=== PATIENT | male | born 1960 | race Caucasian/White ===

== ENCOUNTER → 2021-03-07 12:46 | Outpatient (CLI) | payer OTHER, SELFPAY ==
[2021-03-07 13:47] LABS: Basophils # 0.1 K/mm3 (0-0.2); Eosinophils # 0.1 K/mm3 (0.0-0.4); Eosinophils % 2.3 % (0.1-12.0); Hematocrit 43.8 % (42.0-52.0); Hemoglobin 14.7 g/dL (14.1-18.0); Lymphocytes # 2.3 K/mm3 (0.7-4.5); Lymphocytes % 36.8 % (10-50); Mean Corpuscular HGB Conc 33.6 g/dL (31.8-35.4); Mean Corpuscular Hemoglobin 29.4 pg (27.0-31.2); Mean Corpuscular Volume 87.6 fl (80-94); Mean Platelet Volume 11.5 fl (7.4-10.4); Monocytes # 0.3 K/mm3 (0.1-1.0); Monocytes % 5.2 % (1.7-9.3); Neutrophils # 3.4 K/mm3 (1.8-7.8); Neutrophils % 54.7 % (37.0-80.0); Platelet Count 126 K/mm3 (142-424); Red Blood Count 4.99 M/mm3 (4.60-6.20); Red Cell Distribution Width 13.4 % (11.5-17.5); White Blood Count 6.1 K/mm3 (4.8-10.8)
[2021-03-07 14:10] LABS: Alanine Aminotransferase 43 U/L (12-78); Albumin Level 4.3 g/dl (3.5-5.0); Albumin/Globulin Ratio 1.7 (1.1-1.8); Alkaline Phosphatase 146 U/L (38-126); Anion Gap 17.8 mEq/L (5-15); Aspartate Amino Transferase 31 U/L (17-59); Bilirubin,Total 1.2 mg/dl (0.2-1.3); Blood Urea Nitrogen 19 mg/dl (9-20); Carbon Dioxide 19 mmol/L (22.0-30.0); Chloride 102 mmol/L (98-107); Chol/HDL Ratio 7.2 (1-3.5); Cholesterol 223 mg/dl (140-200); Estimated Glomerular Filt Rate 115 ml/min (>60); GFR (African American) 139 ML/MIN (>60); Globulin 2.6 g/dL (1.3-3.2); HDL Cholesterol 31 mg/dl (40-60); Potassium 4.8 mmoL/L (3.5-5.1); Sodium 134 mmol/L (136-145); Total Protein,Serum 6.9 g/dl (6.3-8.2)
[2021-03-07 14:22] LABS: Direct LDL Cholesterol 80.33 mg/dL (100-129)
[2021-03-07 14:38] LABS: Free T4 (Free Thyroxine) 0.93 ng/dl (0.78-2.19)
[2021-03-07 14:41] LABS: Thyroid Stimulating Hormone 5.54 uIU/mL (0.465-4.68)
[2021-03-07 15:52] LABS: Glucose 490 mg/dl (74-100); Triglycerides 933 mg/dl (30-150)
[2021-03-07 16:13] LABS: Hemoglobin A1C 13.6 % (4.0-6.0)
== END ==
PROVIDERS: Visit Provider Emergency Medicine
DX: E11.9 Type 2 diabetes mellitus without complications (principal)
CPT/HCPCS: 80053; 80061; 83036; 84439; 84443; 85025

== ENCOUNTER → 2021-03-29 19:26 | Outpatient (CLI) | payer OTHER, SELFPAY ==
[2021-03-29 20:15] LABS: Microalbumin/Creatinine Ratio 8.3
[2021-03-29 20:16] LABS: Creatinine,Urine Random 85 mg/dL (Not Estab.)
[2021-03-31 11:10] LABS: C-Peptide 4.4 ng/mL (1.1-4.4)
== END ==
PROVIDERS: Visit Provider Nurse Practitioner Family
DX: E11.9 Type 2 diabetes mellitus without complications (principal); Z79.4 Long term (current) use of insulin
CPT/HCPCS: 82043; 82570; 84681

== ENCOUNTER 2022-09-03 13:07 | Emergency (ER) | payer SELFPAY ==
--- NOTE | 2022-09-03 14:21 | EXP.UTC ---
Discharge Plan Disposition Patient Disposition: Home, Self-Care Condition: Good Prescriptions Prescriptions: New ciprofloxacin HCl [Ciloxan] 0.3 % drops 2 drp Eye-Right BID 7 Days Qty: 1 0RF prednisone [prednisone] 20 mg tablet 20 mg PO DAILY 4 Days Qty: 4 0RF amoxicillin-pot clavulanate 875-125 mg Tablet 1 tab PO Q12H Qty: 20 0RF No Action (DME) blood-glucose meter [Accu-Chek Guide Glucose Meter] Misc See Rx Instructions .ROUTE .MEDSUPPLY Qty: 1 0RF Rx Instructions: Check sugar once daily or As directed (DME) Accu-Chek Guide test strips Strip See Rx Instructions .ROUTE .MEDSUPPLY Qty: 100 2RF Rx Instructions: Check sugar once daily or As directed (DME) lancets [Accu-Chek Softclix Lancets] Misc See Rx Instructions .ROUTE .MEDSUPPLY Qty: 100 1RF Rx Instructions: Check sugar once daily or As directed Lantus U-100 Insulin 100 unit/mL solution 10 unit SQ DAILY metformin 1,000 mg tablet 1,000 mg PO BID Qty: 180 2RF aspirin 81 mg tablet,delayed release (DR/EC) 81 mg PO DAILY Qty: 90 2RF atorvastatin [Lipitor] 10 mg tablet 10 mg PO HS Qty: 90 0RF lisinopril 2.5 mg tablet 2.5 mg PO DAILY Qty: 90 0RF levothyroxine [Synthroid] 25 mcg tablet 25 mcg PO DAILY Qty: 90 3RF Referrals Follow up/Referrals: Provider,Referral, MD [Primary Care Provider] - See instructions Activity Restrictions/Add. Instructions Additional Instructions/Restrictions: Take tylenol or ibuprofen for pain or fever. Take the medications as directed. Use the ear drops as directed. Follow up with your regular doctor. GO TO THE ER FOR ANY WORSENING SYMPTOMS Clinical Impressions Clinical Impression: Acute right otitis media Stand Alone Forms Stand Alone Forms: Work/School Release Instructions Patient Instructions: How to Instill Ear Drops, Middle Ear Infection Discharge ED Provider: Mauricio Fox [facility] [place] General Stated complaint: ear pain, sore throat, cough Time Seen by Provider: 09/03/22 14:21 History of Present Illness Provider Complaint: He states that for the past 4 days he has had worsening right ear pain. He believes he has an ear infection. He denies significant cough and other symptoms. Related Data Home Medications Medication Instructions Recorded Confirmed insulin glargine 100 unit/mL 10 unit SQ DAILY 03/29/21 03/29/21 subcutaneous solution (Lantus U-100 Insulin) Previous Rx's Medication Instructions Recorded blood sugar diagnostic (Accu-Chek #100 ea 02/07/21 Guide test strips) blood-glucose meter (Accu-Chek #1 ea 02/07/21 Guide Glucose Meter) lancets (Accu-Chek Softclix #100 ea 02/07/21 Lancets) aspirin 81 mg tablet,delayed 81 mg PO DAILY #90 tabs 03/07/21 release atorvastatin 10 mg tablet (Lipitor) 10 mg PO HS #90 tabs 03/07/21 lisinopril 2.5 mg tablet 2.5 mg PO DAILY #90 tabs 03/07/21 metformin 1,000 mg tablet 1,000 mg PO BID #180 tabs 03/07/21 levothyroxine 25 mcg tablet 25 mcg PO DAILY #90 tabs 03/14/21 (Synthroid) amoxicillin 875 mg-potassium 1 tab PO Q12H #20 tabs 09/03/22 clavulanate 125 mg tablet ciprofloxacin HCl 0.3 % eye drops 2 drp Eye-Right BID 7 days #1 mL 09/03/22 (Ciloxan) prednisone 20 mg tablet 20 mg PO DAILY 4 days #4 tabs 09/03/22 Allergies Allergy/AdvReac Type Severity Reaction Status Date / Time No Known Allergies Allergy Verified 09/03/22 14:29 [facility] Disclaimer: The information contained in this section may have been updated after the patient was seen, as this information can be updated by other users. Social History Smoking Status: Never smoker alcohol intake: current substance use type: denies use current occupational status: employed Travel in the last 8 weeks: None housing: house ROS Obtained: Yes All systems reviewed & no additional complaints except as documented Constitut
[2022-09-03 14:26] VITALS: BP 131/86; PULSE 84; RESP 19; TEMP 37.6; O2SAT 97; BMI 33.5
[2022-09-03 15:14] VITALS: BP 131/86; PULSE 84; RESP 19; TEMP 37.6
== END 2022-09-03 15:15 | disposition home or self-care (01) ==
PROVIDERS: Emergency Provider Nurse Practitioner Family
DX: H66.91 Otitis media, unspecified, right ear (principal)
CPT/HCPCS: 99212; G0463

== ENCOUNTER 2023-07-26 11:36 | Emergency (ER) | payer OTHER, SELFPAY ==
[2023-07-26] VITALS (8 sets, daily range): BP systolic 119–147; BP diastolic 68–89; PULSE 77–88; RESP 17–18; TEMP 36.7; O2SAT 95–99; BMI 26.6
[2023-07-26 11:54] LABS: POC Glucose,Bedside 186 (70-110)
[2023-07-26 12:03] LABS: Microscopic, Urine URINE MICROSCOPIC (MICROSCOPIC)
--- NOTE | 2023-07-26 12:03 | CT_ITS ---
PROCEDURE INFORMATION: Exam: CT Lumbar Spine Without Contrast Exam date and time: 07/26/2023 12:12 PM Age: 62 years old Clinical indication: Injury or trauma; Fall; Blunt trauma (contusions or hematomas); Additional info: Fall from barn TECHNIQUE: Imaging protocol: Computed tomography of the lumbar spine without contrast. Radiation optimization: All CT scans at this facility use at least one of these dose optimization techniques: automated exposure control; mA and/or kV adjustment per patient size (includes targeted exams where dose is matched to clinical indication); or iterative reconstruction. REPORTING DATA: Count of CT and Cardiac NM exams in prior 12 months: This patient has received 0 known CTs and 0 known cardiac nuclear medicine studies in the 12 months prior to the current study. COMPARISON: No relevant prior studies available. FINDINGS: Bones/joints: There is mild acute wedge compression of the upper T12 vertebral body. The bones are osteopenic. The alignment is preserved. There is lumbar spondylosis with disc bulging and osteophyte, facet arthropathy and ligamentous thickening. At L1-L2 there is broad-based disc bulge with facet arthropathy. There is mild canal narrowing and [id number] neural foraminal stenosis. At L2-L3 there is a broad-based disc bulge with facet arthropathy and ligamentous thickening causing hzld-au-blcgrgsr canal narrowing and neural foraminal narrowing. At L3-L4 there is a broad-based disc bulge with facet arthropathy and ligamentous thickening causing moderate canal and foraminal narrowing. At L4-L5 there is a broad-based disc bulge with facet arthropathy and ligamentous thickening causing moderate canal and foraminal narrowing. At L5-S1 there is disc osteophyte with this arthropathy. There is moderate canal and severe neural foraminal narrowing. Soft tissues: Unremarkable. IMPRESSION: Acute T12 compression fracture. Lumbar spondylosis.
--- NOTE | 2023-07-26 12:03 | CT_ITS ---
PROCEDURE INFORMATION: Exam: CT Pelvis Without Contrast; Skeletal Exam date and time: 07/26/2023 12:15 PM Age: 62 years old Clinical indication: Injury or trauma; Fall; Blunt trauma (contusions or hematomas); Bilateral; Pelvic region; Additional info: Fall from barn TECHNIQUE: Imaging protocol: Computed tomography of the pelvis without contrast. Exam focused on the skeleton. Radiation optimization: All CT scans at this facility use at least one of these dose optimization techniques: automated exposure control; mA and/or kV adjustment per patient size (includes targeted exams where dose is matched to clinical indication); or iterative reconstruction. REPORTING DATA: Count of CT and Cardiac NM exams in prior 12 months: This patient has received 0 known CTs and 0 known cardiac nuclear medicine studies in the 12 months prior to the current study. COMPARISON: CT LUMBAR SPINE WO CON 07/26/2023 12:12 PM FINDINGS: Stomach and bowel: Diverticular disease is incidentally noted in the visualized portion of the sigmoid and descending colon. Bones/joints: There is relatively symmetric sacroiliac sclerosis and osteophytosis. There is no evidence for acute pelvic fracture or dislocation. There is symmetric mild joint space narrowing about the hips. Soft tissues: Unremarkable. IMPRESSION: No evidence of acute trauma in the pelvis.
[2023-07-26 12:04] LABS: Appearance,Urine CLEAR (Clear); Bilirubin,Urine Negative (Negative); Blood, Urine Negative (Negative); Color,Urine YELLOW (Yellow); Glucose,Urine (UA) Negative (Negative); Ketones,Urine TRACE (Negative); Leukocyte Esterase,Urine Negative (Negative); Nitrate,Urine Negative (Negative); Protein,Urine Negative (Negative); Specific Gravity, Urine >= 1.030 (1.005-1.030); Urobilinogen,Urine 0.2 EU/dl (0.2)
--- NOTE | 2023-07-26 12:05 | HMH.EDGENADL ---
Discharge Plan Disposition Patient Disposition: Home, Self-Care Prescriptions Prescriptions: New oxycodone 5 mg tablet 5 mg PO Q8H PRN (Reason: severe pain (scale score 7-10)) Qty: 12 0RF Rx Instructions: Do not combine with other opiates. Please take only after Tylenol and ibuprofen have not improved pain. No Action (DME) blood-glucose meter [Accu-Chek Guide Glucose Meter] Misc See Rx Instructions .ROUTE .MEDSUPPLY Qty: 1 0RF Rx Instructions: Check sugar once daily or As directed (DME) Accu-Chek Guide test strips Strip See Rx Instructions .ROUTE .MEDSUPPLY Qty: 100 2RF Rx Instructions: Check sugar once daily or As directed (DME) lancets [Accu-Chek Softclix Lancets] Misc See Rx Instructions .ROUTE .MEDSUPPLY Qty: 100 1RF Rx Instructions: Check sugar once daily or As directed Lantus U-100 Insulin 100 unit/mL solution 10 unit SQ DAILY metformin 1,000 mg tablet 1,000 mg PO BID Qty: 180 2RF aspirin 81 mg tablet,delayed release (DR/EC) 81 mg PO DAILY Qty: 90 2RF atorvastatin [Lipitor] 10 mg tablet 10 mg PO HS Qty: 90 0RF lisinopril 2.5 mg tablet 2.5 mg PO DAILY Qty: 90 0RF levothyroxine [Synthroid] 25 mcg tablet 25 mcg PO DAILY Qty: 90 3RF ciprofloxacin HCl [Ciloxan] 0.3 % drops 2 drp Eye-Right BID 7 Days Qty: 1 0RF prednisone [prednisone] 20 mg tablet 20 mg PO DAILY 4 Days Qty: 4 0RF amoxicillin-pot clavulanate 875-125 mg Tablet 1 tab PO Q12H Qty: 20 0RF Referrals Follow up/Referrals: Provider,Referral, MD [Primary Care Provider] - See instructions Activity Restrictions/Add. Instructions Additional Instructions/Restrictions: At this time it was felt you are safe to be discharged home. If new or worsening symptoms please do not hesitate to return the emergency department. Please call and schedule an appointment with your spine doctor as discussed. Please take your medication as prescribed. Clinical Impressions Clinical Impression: Closed T12 fracture Discharge ED Provider: Reynaldo Becerril General Adult HPI General Chief complaint: Fall Stated complaint: AO fall out of barn, backpain Time Seen by Provider: 07/26/23 12:00 Mode of Arrival: Ambulatory Source of Information: Patient Limitations: No Limitations Description of Symptoms (Recalled from ER Triage Doc. by RN): pt c/o lower back pain r/t fall approx 6 ft from a barn rail while house tobacco at approx 11am this morning. Denies neck pain, denies LOC, no loss of bowel or bladder control. History of Present Illness HPI narrative: Patient is a 62-year-old male with no pertinent past medical history presents emergency department for evaluation of traumatic injury sustained in a fall. Patient fell off of the lower rail while house and tobacco striking his lower back. Did not strike his head, no loss of consciousness, no anticoagulants. Denies other pain at this time. Related Data Home Medications Medication Instructions Recorded Confirmed insulin glargine 100 unit/mL 10 unit SQ DAILY 03/29/21 03/29/21 subcutaneous solution (Lantus U-100 Insulin) Previous Rx's Medication Instructions Recorded blood sugar diagnostic (Accu-Chek #100 ea 02/07/21 Guide test strips) blood-glucose meter (Accu-Chek #1 ea 02/07/21 Guide Glucose Meter) lancets (Accu-Chek Softclix #100 ea 02/07/21 Lancets) aspirin 81 mg tablet,delayed 81 mg PO DAILY #90 tabs 03/07/21 release atorvastatin 10 mg tablet (Lipitor) 10 mg PO HS #90 tabs 03/07/21 lisinopril 2.5 mg tablet 2.5 mg PO DAILY #90 tabs 03/07/21 metformin 1,000 mg tablet 1,000 mg PO BID #180 tabs 03/07/21 levothyroxine 25 mcg tablet 25 mcg PO DAILY #90 tabs 03/14/21 (Synthroid) amoxicillin 875 mg-potassium 1 tab PO Q12H #20 tabs 09/03/22 clavulanate 125 mg tablet ciprofloxacin HCl 0.3 % eye drops 2 drp Eye-Right BID 7 days #1 mL 09/03/22 (Ciloxan) prednisone 20 mg tablet 20 mg PO DAILY 4 days #4 ta
[2023-07-26 12:09] LABS: Basophils # 0.1 K/mm3 (0-0.2); Eosinophils # 0.1 K/mm3 (0.0-0.4); Eosinophils % 0.7 % (0.1-12.0); Hematocrit 45.3 % (42.0-52.0); Hemoglobin 15.2 g/dL (14.1-18.0); Lymphocytes # 1.6 K/mm3 (0.7-4.5); Lymphocytes % 24.8 % (10-50); Mean Corpuscular HGB Conc 33.6 g/dL (31.8-35.4); Mean Corpuscular Hemoglobin 28.8 pg (27.0-31.2); Mean Corpuscular Volume 85.7 fl (80-94); Mean Platelet Volume 9.6 fl (7.4-10.4); Monocytes # 0.3 K/mm3 (0.1-1.0); Monocytes % 4.1 % (1.7-9.3); Neutrophils # 4.6 K/mm3 (1.8-7.8); Neutrophils % 69.3 % (37.0-80.0); Platelet Count 110 K/mm3 (142-424); Red Blood Count 5.29 M/mm3 (4.60-6.20); Red Cell Distribution Width 13.2 % (11.5-17.5); White Blood Count 6.6 K/mm3 (4.8-10.8)
[2023-07-26 12:15] LABS: Blood Urea Nitrogen 22 mg/dl (9-20); Calcium 8.7 mg/dl (8.4-10.2); Carbon Dioxide 24 mmol/L (22.0-30.0); Chloride 101 mmol/L (98-107); Creatinine Clearance Estimated 74 mL/min (50-200); Estimated Glomerular Filt Rate 114 ml/min (>60); GFR (African American) 138 ML/MIN (>60); Glucose 185 mg/dl (74-100); Sodium 136 mmol/L (136-145)
[2023-07-26 12:20] LABS: Bacteria,Urine Trace /lpf; Squamous Epithelial Cell,Urine Occasional #/hpf (0-5); Transitional Epi Cells,Urine N #/lpf (0-3)
--- NOTE | 2023-07-26 12:39 | PC.NURSE ---
Rounded on pt. No needs or complaints voiced. Call light within reach.
--- NOTE | 2023-07-26 13:06 | CT_ITS ---
PROCEDURE INFORMATION: Exam: CT Thoracic Spine Without Contrast Exam date and time: 07/26/2023 1:14 PM Age: 62 years old Clinical indication: Pain; Additional info: Spine trauma TECHNIQUE: Imaging protocol: Computed tomography of the thoracic spine without contrast. Radiation optimization: All CT scans at this facility use at least one of these dose optimization techniques: automated exposure control; mA and/or kV adjustment per patient size (includes targeted exams where dose is matched to clinical indication); or iterative reconstruction. REPORTING DATA: Count of CT and Cardiac NM exams in prior 12 months: This patient has received 0 known CTs and 0 known cardiac nuclear medicine studies in the 12 months prior to the current study. COMPARISON: CT LUMBAR SPINE WO CON 07/26/2023 12:12 PM FINDINGS: Bones/joints: There is an acute wedge compression fracture of T12 vertebral body primarily involving the superior endplate or compression line is apparent. There is no retropulsed bone fragment. Alignment in the thoracic spine is normal. There is a probable hemangioma in the T8 vertebral body. No spinal canal stenosis in the thoracic spine. Soft tissues: Unremarkable. Lungs: There is subpleural atelectasis of the dependent portions of the lungs. IMPRESSION: There is a wedge compression fracture of T12 vertebral body primarily involving the superior endplate. There is no significant retropulsed bone fragment. No spinal canal stenosis at this level or in remainder of the thoracic spine.
--- NOTE | 2023-07-26 13:20 | PC.NURSE ---
pt was resting in bed stated no needs at bs
--- NOTE | 2023-07-26 14:14 | PC.NURSE ---
Dr. Becerril speaking with Dr. Owen
--- NOTE | 2023-07-26 14:30 | PC.NURSE ---
Dr. Becerril and Rosina RN at to update pt on POC
== END 2023-07-26 15:00 | disposition home or self-care (01) ==
PROVIDERS: Emergency Provider Emergency Medicine
DX: S22.080A Wedge compression fracture of T11-T12 vertebra, initial encounter for closed fracture (principal); W17.89XA Other fall from one level to another, initial encounter
CPT/HCPCS: 72128; 72131; 72192; 80048; 81001; 82962; 85025; 96374; 96376; 99285

== ENCOUNTER 2023-09-25 11:25 | Outpatient (CLI) | payer OTHER, SELFPAY ==
--- NOTE | 2023-09-25 11:30 | MR_ITS ---
FINAL REPORT CLINICAL HISTORY: PAIN IN THORACIC AND LUMBAR SPINE. PAIN RADIATES DOWN INTO RIGHT HIP. COMPARISON: None FINDINGS: Multiplanar MR imaging of the right hip was performed without contrast. There is no evidence of fracture or dislocation. There is no evidence of avascular necrosis. No bony mass is identified. There is mild degenerative change in the hips bilaterally. There is mild irregularity of the anterior superior labrum, likely a small tear. A small joint effusion is seen. There is mild edema surrounding the distal gluteus medius tendon consistent with peritendinitis. There is also mild edema adjacent to the greater trochanter, consistent with trochanteric bursitis. The musculature is intact. There are bilateral borderline in size inguinal nodes present, likely reactive. IMPRESSION: Irregularity of the anterior superior labrum, likely a small labral tear. Mild edema adjacent to the greater trochanter and surrounding the distal gluteus medius tendon consistent with peritendinitis and trochanteric bursitis. Bilateral borderline in size inguinal nodes, likely reactive. Reviewed, Interpreted and Dictated by Tigre Segura III, MD Transcribed by Khloe Morocho Authenticated and [facility]
== END 2023-09-25 23:59 ==
LOC: RAD 11:25
PROVIDERS: PCP Family Medicine; Visit Provider Clinical Nurse Specialist Family Health
DX: M54.6 Pain in thoracic spine (principal)
CPT/HCPCS: 73721

== ENCOUNTER → 2023-09-29 10:42 | Outpatient (POV) | payer OTHER, SELFPAY ==
--- NOTE | 2023-09-29 11:44 | A.OFFVIS_ITS ---
HPI Data of Consult Patient: new to practice Consult date: 09/29/23 Requesting Physician: Berta Owen APRN Consult Narrative Reason for consult: Mid to low back pain, bilateral hip pain History of present illness: Mr. Stubbs is a 62 year old male who presents today as a new patient. He is a referral from Loretta Whitney's office. Today he rates his pain a 7 out of 10. 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 Patient states that on July 26 he fell from a barn landing on his back. Patient states he is continue to have constant throbbing pain at his mid to low back that does radiate down around his sides as well as bilateral hip pain. Patient states that he did try [id number] Tylenol and ibuprofen along with heat and ice and topicals with minimal relief. He states he continues to use [employer]'s however has not noticed any improvement. Patient did go to physical therapy after his fall however he was going once a week but never noticed any improvement or any change to his pain symptoms. Patient does state the pain interferes with his ability perform activities of daily living ramirez ch as cooking and cleaning. Patient does state that his hip pain he did do imaging on the right however that the pain is now in both his hips. Patient states that he was told that he had a tear in his hip and was supposed to be sent to an orthopedic doctor however they have not heard any updates from this. Patient does state today that his hip pain is causing more pain than his mid to low back pain. He is interested in any help we may be able to provide. Patient is currently being managed with compounded cream and was given a temporary supply of oxycodone 5 mg 3 times a day August from patient does state that he is scheduled to go back to [place] on Friday and will be gone for 2 months before returning. His [place] has been reviewed and is appropriate. CC: Berta Owen APRN [facility] Disclaimer: The information contained in this section may have been updated after the patient was seen, as this information can be updated by other users. Medical History (Updated 09/29/23 @ 11:50 by Berta Owen APRN) Acute right otitis media Closed T12 fracture Diabetes Hyperlipidemia Hypertension Surgical History No significant past surgical history Family History Other Family history non-contributory Social History Smoking Status: Unknown if ever smoked alcohol intake: current substance use type: denies use current occupational status: employed Travel in the last 8 weeks: None housing: house Review of Systems Review of Systems Review of systems:: pertinent systems reviewed and negative unless documented below Review of systems (narrative): Review of Systems: General: No recent weight changes, no fever, no sleep disturbances Respiratory: No cough, no shortness of air, no recurring pulmonary infections Cardiovascular/peripheral vascular: No chest pain, no palpitations, no edema, no shortness of breath Gastrointestinal: No new onset incontinence, normal bowel movements reported Genitourinary: No new onset incontinence Musculoskeletal: Bilateral hip pain, mid to low back pain Psychiatric: [Normal mood/affect] Neurological: [Denies weakness in extremities], [denies balance issues] Meds Home Medications and Allergies Home Medications Medication Instructions Recorded Confirmed Type blood sugar diagnostic (Accu-Chek #100 ea 02/07/21 07/30/23 Rx Guide test strips) blood-glucose meter (Accu-Chek #1 ea 02/07/21 07/30/23 Rx Guide Glucose Meter) lancets (Accu-Chek Softclix #100 ea 02/07/21 07/30/23 Rx Lancets) metformin 1,000 mg tablet 1,000 mg PO BID #180 tabs 03/07/21 07/30/23 Rx insulin glargine 100 unit/mL 10 unit SQ DAILY 03/29/21 07/30/23 History subcutaneous solution (Lantus U-100 Insulin) oxycodone 5 mg tablet 5 mg PO Q8H PRN severe pain (scale 07/26/23 07/30/23 Rx score 7-10) #12 tabs New Prescriptions to Start Prescriptions: Allergies Allergy/AdvReac Type Severity Reaction Status Date / Time No Known Allergies Allergy Verified 07/30/23 14:42 Objective Narrative: Physical Exam: General: Alert and oriented x3, no acute distress, pleasant and cooperative Lungs: Respirations even and unlabored, symmetrical chest expansion Eyes: PERRL Musculoskeletal: Flexion and extension of lumbar [spine] somewhat guarded secondary to pain, [antalgic gait noted] Neurological: Speech clear, no gross sensory deficit Additional findings Additional findings: TECHNIQUE: Imaging protocol: Computed tomography of the thoracic spine without contrast. Radiation optimization: All CT scans at this facility use at least one of these dose optimization techniques: automated exposure control; mA and/or kV adjustment per patient size (includes targeted exams where dose is matched to clinical indication); or iterative reconstruction. REPORTING DATA: Count of CT and Cardiac NM exams in prior 12 months: This patient has received 0 known CTs and 0 known cardiac nuclear medicine studies in the 12 months prior to the current study. COMPARISON: CT LUMBAR SPINE WO CON 07/26/2023 12:12 PM FINDINGS: Bones/joints: There is an acute wedge compression fracture of T12 vertebral body primarily involving the superior endplate or compression line is apparent. There is no retropulsed bone fragment. Alignment in the thoracic spine is normal. There is a probable hemangioma in the T8 vertebral body. No spinal canal stenosis in the thoracic spine. Soft tissues: Unremarkable. Lungs: There is subpleural atelectasis of the dependent portions of the lungs. IMPRESSION: There is a wedge compression fracture of T12 vertebral body primarily involving the superior endplate. There is no significant retropulsed bone fragment. No spinal canal stenosis at this level or in remainder of the thoracic spine. ARISON: None FINDINGS: Multiplanar MR imaging of the right hip was performed without contrast. There is no evidence of fracture or dislocation. There is no evidence of avascular necrosis. No bony mass is identified. There is mild degenerative change in the hips bilaterally. There is mild irregularity of the anterior superior labrum, likely a small tear. A small joint effusion is seen. There is mild edema surrounding the distal gluteus medius tendon consistent with peritendinitis. There is also mild edema adjacent to the greater trochanter, consistent with trochanteric bursitis. The musculature is intact. There are bilateral borderline in size inguinal nodes present, likely reactive. IMPRESSION: Irregularity of the anterior superior labrum, likely a small labral tear. Mild edema adjacent to the greater trochanter and surrounding the distal gluteus medius tendon consistent with peritendinitis and trochanteric bursitis. Bilateral borderline in size inguinal nodes, likely reactive. Reviewed, Interpreted and Dictated by Tigre Segura III, MD Transcribed by Khloe Morocho Authenticated and [facility] Assessment and Plan *Assessment and plan (1) Compression fracture of thoracic vertebra: Status: Acute Qualifiers: Encounter type: subsequent encounter Thoracic vertebra fracture level: T12 Fracture healing: with routine healing Qualified Code(s): S22.080D - Wedge compression fracture of T11-T12 vertebra, subsequent encounter for fracture with routine healing Category: Medical Code(s): S22.000A - Wedge compression fracture of unspecified thoracic vertebra, initial encounter for closed fracture (2) Bilateral hip pain: Status: Acute Category: Medical Code(s): M25.551 - Pain in right hip; M25.552 - Pain in left hip (3) Mid back pain: Status: Acute Category: Medical Code(s): M54.9 - Dorsalgia, unspecified (4) Low back pain: Status: Acute Qualifiers: Chronicity: acute Back pain laterality: bilateral Sciatica presence: without sciatica Qualified Code(s): M54.50 - Low back pain, unspecified Category: Medical Code(s): M54.50 - Low back pain, unspecified Plan Patient is experiencing significant pain in his mid to low back and bilateral hips with limited range of motion of his lumbar spine during today's exam. I have discussed with the patient due to him going back to [place] on Friday we may not be able to offer possible kyphoplasty options for his wedge compression fracture of T12. I have also discussed with the patient that he may have improvement with injection therapy. Patient does state that his hips are what really bothers him and I have discussed with the patient that he may benefit from intra-articular hip injections. Risk and benefits were discussed with the patient and he would like to proceed forward with this plan of care. I have also discussed with the patient that I do highly recommend seeing an orthopedic doctor regarding his labrum tear on the right hip. Patient acknowledges understanding. We will submit for bilateral hip intra-articular injections. I have counseled the patient due to him leaving out of town on Friday we will send his information to our [place] office and see if we can get him in for injections later this week. We will contact the patient with date and time from our [place] office location. Patient is not on any blood thinners. Patient is a diabetic and is on metformin. I have counseled the patient to take his medications like normally prescribed and to check his glucose the morning of the procedure and that if his sugar is above 300 we will have to reschedule. Patient has been instructed to contact the clinic with any concerns before the next appointment. Dr. Reyes has reviewed this note and agrees with this plan of care. This note was dictated using voice recognition software and make contain errors or omissions.
[2023-09-29 12:52] VITALS: BP 136/83; PULSE 90; RESP 18; O2SAT 97; BMI 24.7
== END ==
LOC: SC.PAIN 10:44
PROVIDERS: Visit Provider Nurse Practitioner Family
DX: S22.080D Wedge compression fracture of T11-T12 vertebra, subsequent encounter for fracture with routine healing (principal); M25.551 Pain in right hip; M25.552 Pain in left hip; M54.6 Pain in thoracic spine; M54.50 Low back pain, unspecified
CPT/HCPCS: 99202; G0463